=== PATIENT | female | born 1965 | race Caucasian/White ===

== ENCOUNTER 2017-07-29 14:12 | Emergency (ER) | payer OTHER ==
[~2017-07-29] VITALS: Ht 157.4 cm; Wt 52.2 kg
[~2017-07-29 14:12] MED LIST: BENTYL10 MG PO
== END 2017-07-29 16:18 | disposition home or self-care (01) ==
LOC: ED 14:12
DX: S66.812A Strain of other specified muscles, fascia and tendons at wrist and hand level, left hand, initial encounter (principal); F17.200 Nicotine dependence, unspecified, uncomplicated; F10.10 Alcohol abuse, uncomplicated; W22.8XXA Striking against or struck by other objects, initial encounter; Y93.89 Activity, other specified; Y92.89 Other specified places as the place of occurrence of the external cause; Y99.8 Other external cause status

== ENCOUNTER 2017-11-08 17:10 | Emergency (ER) | payer OTHER ==
[~2017-11-08] VITALS: Wt 49.9 kg
[2017-11-08] MEDS ORDERED: CLINDAMYCIN150 MG PO (17:41)
[2017-11-08] MEDS ORDERED: Bactroban Oint22 GM T (17:41)
== END 2017-11-08 17:54 | disposition home or self-care (01) ==
LOC: ED 17:10
DX: Z48.00 Encounter for change or removal of nonsurgical wound dressing (principal); L08.9 Local infection of the skin and subcutaneous tissue, unspecified; R03.0 Elevated blood-pressure reading, without diagnosis of hypertension; F17.200 Nicotine dependence, unspecified, uncomplicated

== ENCOUNTER 2017-12-19 14:39 | Emergency (ER) | payer OTHER ==
[~2017-12-19] VITALS: Ht 157.4 cm; Wt 52.2 kg
[~2017-12-19 14:39] MED LIST changes: +Bactroban Oint22 GM T; +CLINDAMYCIN150 MG PO
[2017-12-19] MEDS ORDERED: FLONASE ALLERG9.9 ML NS (15:33)
[2017-12-19] MEDS ORDERED: AMOXICILLIN500 M2 PO (15:33)
== END 2017-12-19 15:42 | disposition home or self-care (01) ==
LOC: ED 14:39
DX: H65.91 Unspecified nonsuppurative otitis media, right ear (principal); Z79.899 Other long term (current) drug therapy

== ENCOUNTER 2018-05-29 16:35 | Emergency (ER) | payer OTHER ==
[~2018-05-29] VITALS: Ht 157.4 cm; Wt 52.2 kg
[~2018-05-29 16:35] MED LIST changes: +AMOXICILLIN500 M2 PO; +FLONASE ALLERG9.9 ML NS
[2018-05-29] MEDS ORDERED: CEPHALEXIN500 M1 PO (17:28)
== END 2018-05-29 17:40 | disposition home or self-care (01) ==
LOC: ED 16:35
DX: S60.321A Blister (nonthermal) of right thumb, initial encounter (principal); L08.9 Local infection of the skin and subcutaneous tissue, unspecified; Z79.899 Other long term (current) drug therapy; W26.0XXA Contact with knife, initial encounter; Y93.89 Activity, other specified; Y92.89 Other specified places as the place of occurrence of the external cause; Y99.8 Other external cause status

== ENCOUNTER 2019-11-17 19:14 | Emergency (ER) | payer OTHER ==
[~2019-11-17] VITALS: Ht 157.4 cm; Wt 54.4 kg
[~2019-11-17 19:14] MED LIST changes: +CEPHALEXIN500 M1 PO
[2019-11-17 20:06] LABS: BASO # 0.1 10*3/uL (0.0-0.1); BASO % 1.1 % (0.0-1.0); EOS # 0.1 10*3/uL (0.0-0.4); EOS % 0.6 % (1.0-4.0); HEMATOCRIT 31.3 % (37.0-47.0); HEMOGLOBIN 10.1 g/dl (12.0-16.0); LYMPH # 2.1 10*3/uL (1.3-4.4); MEAN CELL VOLUME 80.5 fl (81.0-99.0); MEAN CORPUSCULAR HGB CONC 32.3 g/dl (33.0-37.0); MEAN PLATELET VOLUME 9.3 fl (9.6-12.3); MONO # 0.9 10*3/uL (0.1-1.0); MONO % 11.5 % (3.0-9.0); NEUT # 4.7 10*3/uL (2.3-7.9); NEUT % 59.5 % (47.0-73.0); PLATELET COUNT AUTOMATED 231 10*3/uL (130-400); RED BLOOD COUNT 3.89 10*6/uL (4.10-5.10); RED CELL DISTRI WIDTH 16.7 % (0-14.5); WHITE BLOOD COUNT 7.9 10*3/uL (4.8-10.8)
[2019-11-17 20:19] LABS: ACT PARTIAL THROMBO TIME 29.8 SECONDS (20.0-32.1)
[2019-11-17 20:23] LABS: ALBUMIN 3.4 gm/dl (3.1-4.5); ALKALINE PHOSPHATASE 204 U/L (45-117); BUN 2 mg/dl (7-24); CHLORIDE 93 mmol/L (98-107); CREATININE 0.38 mg/dL (0.55-1.02); LIPASE 203 U/L (73-393); POTASSIUM 3.7 mmol/L (3.5-5.1); SGOT/AST 45 IU/L (3-35); SGPT/ALT 28 U/L (12-78); SODIUM 124 mmol/L (136-145); TOTAL PROTEIN 7.6 gm/dL (6.4-8.2)
[2019-11-17 20:29] LABS: TROPONIN I < 0.015 ng/ml (<0.045)
[2019-11-17 21:48] LABS: CLARITY CLEAR (CLEAR); COLOR YELLOW (YELLOW)
[2019-11-17 21:49] LABS: BILIRUBIN NEGATIVE (NEGATIVE); BLOOD NEGATIVE (NEGATIVE); GLUCOSE NEGATIVE (NEGATIVE); KETONE NEGATIVE (NEGATIVE); LEUKO ESTERASE NEGATIVE (NEGATIVE); NITRITE NEGATIVE (NEGATIVE); SPECIFIC GRAVITY 1.005 (1.005-1.030); UROBILINOGEN 0.2 E.U./dl (0.2-1.0)
[2019-11-17] MEDS ORDERED: PEPCID20 MG PO (22:17)
[2019-11-17] MEDS ORDERED: CARAFATE1 G1 PO (22:17)
== END 2019-11-17 22:30 | disposition home or self-care (01) ==
LOC: ED 19:14
PROVIDERS: Nurse Practitioner Family
DX: R10.13 Epigastric pain (principal)

== ENCOUNTER → 2021-02-12 | Outpatient (CLI) | payer OTHER ==
[~2021-02-12] MED LIST changes: +CARAFATE1 G1 PO; +PEPCID20 MG PO
== END | disposition home or self-care (01) ==
LOC: MAMMO 13:00
PROVIDERS: ATTEND Preventive Medicine Occupational Medicine
DX: Z12.31 Encounter for screening mammogram for malignant neoplasm of breast (principal); N63.10 Unspecified lump in the right breast, unspecified quadrant

== ENCOUNTER → 2021-02-27 | Outpatient (CLI) | payer OTHER | END | disposition home or self-care (01) | LOC: MAMMO 13:00 | PROVIDERS: ATTEND Nurse Practitioner | DX: R92.2 Inconclusive mammogram (principal) ==

== ENCOUNTER 2022-01-14 15:38 | Inpatient (IN) | payer OTHER ==
[2022-01-14] VITALS (10 sets, daily range): BP systolic 87–129; BP diastolic 34–75
[~2022-01-14] VITALS: Ht 157.4 cm; Wt 63.6 kg
[2022-01-14 16:16] LABS: MEAN CELL VOLUME 79.9 fl (81.0-99.0); MEAN CORPUSCULAR HGB 25.3 pg (27.0-31.0); MEAN CORPUSCULAR HGB CONC 31.7 g/dl (33.0-37.0); MEAN PLATELET VOLUME 10.2 fl (9.6-12.3); PLATELET COUNT AUTOMATED 136 10*3/uL (130-400); RED BLOOD COUNT 1.74 10*6/uL (4.10-5.10); RED CELL DISTRI WIDTH 22.8 % (0-14.5); WHITE BLOOD COUNT 8.4 10*3/uL (4.8-10.8)
[2022-01-14 16:40] LABS: MANUAL DIFF REFLEX YES
[2022-01-14 16:42] LABS: ATYPICAL LYMPHS 1 % (0-0); TOTAL CELLS COUNTED 100 #CELLS
[2022-01-14 16:43] LABS: PLATELET SUFFICIENCY NORMAL (NORMAL); POLYCHROMASIA SLIGHT
[2022-01-14 16:44] LABS: MICROCYTOSIS MODERATE
[2022-01-14 16:45] LABS: STOMATOCYTE FEW
[2022-01-14 16:46] LABS: HEMATOCRIT 13.9 % (37.0-47.0)
[2022-01-14 16:55] LABS: ALKALINE PHOSPHATASE 191 U/L (45-117); BUN 22 mg/dl (7-24); CHLORIDE 87 mmol/L (98-107); LIPASE 171 U/L (73-393); POTASSIUM 2.7 mmol/L (3.5-5.1); SGOT/AST 41 IU/L (3-35); SGPT/ALT 16 U/L (12-78); SODIUM 126 mmol/L (136-145); TOTAL PROTEIN 5.4 gm/dL (6.4-8.2)
[2022-01-14 21:41] LABS: BASO % 0.1 % (0.0-1.0); HEMATOCRIT 28.6 % (37.0-47.0); LYMPH # 0.5 10*3/uL (1.3-4.4); LYMPH % 4.4 % (27.0-41.0); MEAN CORPUSCULAR HGB 27.9 pg (27.0-31.0); MEAN CORPUSCULAR HGB CONC 33.6 g/dl (33.0-37.0); MEAN PLATELET VOLUME 9.8 fl (9.6-12.3); MONO # 1.2 10*3/uL (0.1-1.0); NEUT # 9.3 10*3/uL (2.3-7.9); PLATELET COUNT AUTOMATED 117 10*3/uL (130-400); RED BLOOD COUNT 3.44 10*6/uL (4.10-5.10); RED CELL DISTRI WIDTH 17.2 % (0-14.5)
[2022-01-14 21:56] LABS: BUN 20 mg/dl (7-24); CHLORIDE 96 mmol/L (98-107); CREATININE 0.58 mg/dL (0.55-1.02); POTASSIUM 2.9 mmol/L (3.5-5.1); SODIUM 132 mmol/L (136-145)
[2022-01-14 22:21] LABS: MEAN CELL VOLUME 83.1 fl (81.0-99.0)
[2022-01-14] MEDS ORDERED: ZYRTEC ALLERGY10 MG PO (22:27)
[2022-01-15] VITALS: BP 127/70
[2022-01-15 04:00] VITALS: BP 108/58
[2022-01-15 05:06] LABS: ALKALINE PHOSPHATASE 151 U/L (45-117); BUN 20 mg/dl (7-24); CHLORIDE 100 mmol/L (98-107); CHOLESTEROL 70 mg/dL (<200); CREATININE 0.51 mg/dL (0.55-1.02); SGOT/AST 45 IU/L (3-35); SGPT/ALT 16 U/L (12-78); SODIUM 131 mmol/L (136-145); TOTAL PROTEIN 4.6 gm/dL (6.4-8.2); TRIGLYCERIDES 60 mg/dl (<150)
[2022-01-15 05:07] LABS: FREE T4 1.25 ng/dl (0.76-1.46); LDL CHOLESTEROL 32 mg/dL (9-159)
[2022-01-15 05:10] LABS: POTASSIUM 4.3 mmol/L (3.5-5.1)
[2022-01-15 05:13] LABS: THYROID STIM HORMONE (HS) 0.436 uIU/ml (0.358-4.75)
[2022-01-15 06:24] LABS: HEMATOCRIT 25.5 % (37.0-47.0); MEAN CELL VOLUME 80.2 fl (81.0-99.0); MEAN CORPUSCULAR HGB CONC 34.9 g/dl (33.0-37.0); MEAN PLATELET VOLUME 10.4 fl (9.6-12.3); PLATELET COUNT AUTOMATED 115 10*3/uL (130-400); RED BLOOD COUNT 3.18 10*6/uL (4.10-5.10); RED CELL DISTRI WIDTH 17.1 % (0-14.5); WHITE BLOOD COUNT 8.8 10*3/uL (4.8-10.8)
[2022-01-15 06:28] LABS: MANUAL DIFF REFLEX YES
[2022-01-15 06:47] LABS: ACT PARTIAL THROMBO TIME 29.4 SECONDS (20.0-32.1); INTERNATIONAL NORM RATIO 1.3 (2.0-3.5)
[2022-01-15 06:56] LABS: BURR CELLS FEW; PLATELET SUFFICIENCY LOW (NORMAL); POLYCHROMASIA SLIGHT; TARGET CELLS FEW; TOTAL CELLS COUNTED 100 #CELLS
[2022-01-15 06:57] LABS: MICROCYTOSIS SLIGHT
[2022-01-15 08:00] VITALS: BP 114/61
[2022-01-15 12:00] VITALS: BP 102/61
[2022-01-15 16:00] VITALS: BP 101/61
[2022-01-15 20:00] VITALS: BP 130/52
[2022-01-16] VITALS: BP 101/56
[2022-01-16 04:00] VITALS: BP 113/57
[2022-01-16 04:29] LABS: MEAN CELL VOLUME 82.7 fl (81.0-99.0); MEAN CORPUSCULAR HGB 28.1 pg (27.0-31.0); MEAN CORPUSCULAR HGB CONC 33.9 g/dl (33.0-37.0); MEAN PLATELET VOLUME 10.2 fl (9.6-12.3); NUCLEATED RED BLOOD CELL 0.1 % (0.0-0.0); PLATELET COUNT AUTOMATED 138 10*3/uL (130-400); RED BLOOD COUNT 2.78 10*6/uL (4.10-5.10); RED CELL DISTRI WIDTH 17.8 % (0-14.5); WHITE BLOOD COUNT 13.8 10*3/uL (4.8-10.8)
[2022-01-16 04:40] LABS: MANUAL DIFF REFLEX YES
[2022-01-16 04:53] LABS: ALKALINE PHOSPHATASE 155 U/L (45-117); BUN 15 mg/dl (7-24); CHLORIDE 98 mmol/L (98-107); CREATININE 0.55 mg/dL (0.55-1.02); POTASSIUM 3.7 mmol/L (3.5-5.1); SGOT/AST 53 IU/L (3-35); SGPT/ALT 21 U/L (12-78); SODIUM 130 mmol/L (136-145); TOTAL PROTEIN 4.8 gm/dL (6.4-8.2)
[2022-01-16 05:00] LABS: MICROCYTOSIS SLIGHT; PLATELET SUFFICIENCY LOW (NORMAL); TARGET CELLS FEW; TOTAL CELLS COUNTED 100 #CELLS
[2022-01-16 08:00] VITALS: BP 122/76
[2022-01-16 12:00] VITALS: BP 96/61
[2022-01-16 16:00] VITALS: BP 91/52
[2022-01-16 20:00] VITALS: BP 101/63
[2022-01-17] VITALS: BP 112/62; BP 112/73
[2022-01-17 06:36] LABS: HEMATOCRIT 23.3 % (37.0-47.0); MEAN CELL VOLUME 85.7 fl (81.0-99.0); MEAN CORPUSCULAR HGB 28.3 pg (27.0-31.0); MEAN PLATELET VOLUME 10.1 fl (9.6-12.3); PLATELET COUNT AUTOMATED 148 10*3/uL (130-400); RED BLOOD COUNT 2.72 10*6/uL (4.10-5.10); WHITE BLOOD COUNT 12.4 10*3/uL (4.8-10.8)
[2022-01-17 06:39] LABS: MANUAL DIFF REFLEX YES
[2022-01-17 08:00] VITALS: BP 100/50
[2022-01-17 08:05] LABS: TOTAL CELLS COUNTED 100 #CELLS
[2022-01-17 08:06] LABS: PLATELET SUFFICIENCY NORMAL (NORMAL); POLYCHROMASIA SLIGHT; TARGET CELLS FEW; TOXIC GRANULATION SLIGHT
[2022-01-17 16:00] VITALS: BP 112/60
[2022-01-17 20:00] VITALS: BP 100/49
[2022-01-18] VITALS: BP 104/51
[2022-01-18 06:18] LABS: HEMATOCRIT 24.2 % (37.0-47.0); MEAN CELL VOLUME 85.8 fl (81.0-99.0); MEAN CORPUSCULAR HGB 28.4 pg (27.0-31.0); MEAN CORPUSCULAR HGB CONC 33.1 g/dl (33.0-37.0); MEAN PLATELET VOLUME 9.8 fl (9.6-12.3); PLATELET COUNT AUTOMATED 176 10*3/uL (130-400); RED BLOOD COUNT 2.82 10*6/uL (4.10-5.10); RED CELL DISTRI WIDTH 18.3 % (0-14.5); WHITE BLOOD COUNT 7.4 10*3/uL (4.8-10.8)
[2022-01-18 06:56] LABS: MANUAL DIFF REFLEX YES
[2022-01-18 07:07] LABS: POLYCHROMASIA SLIGHT; TOTAL CELLS COUNTED 100 #CELLS
[2022-01-18 07:08] LABS: PLATELET SUFFICIENCY NORMAL (NORMAL)
[2022-01-18 08:00] VITALS: BP 107/55
[2022-01-18] MEDS ORDERED: VANCOMYCIN HCL125 MG PO (10:37)
== END 2022-01-18 11:57 | disposition home or self-care (01) | DRG 871 ==
LOC: ED 15:38 → EDHOLD 19:50 → ICCU 19:50 → 5E 01-16 22:31
PROVIDERS: Internal Medicine; Nurse Practitioner Family; ADMIT Internal Medicine; ATTEND Internal Medicine
PROC: 30233N1 Transfusion of Nonautologous Red Blood Cells into Peripheral Vein, Percutaneous Approach (ICD-10-PCS; principal; 2022-01-14)
DX: A41.9 Sepsis, unspecified organism (principal); E43 Unspecified severe protein-calorie malnutrition; K92.2 Gastrointestinal hemorrhage, unspecified; D62 Acute posthemorrhagic anemia; E87.1 Hypo-osmolality and hyponatremia; E87.2 Acidosis; R65.20 Severe sepsis without septic shock; E83.51 Hypocalcemia; D64.89 Other specified anemias; E87.6 Hypokalemia; E27.8 Other specified disorders of adrenal gland; K52.9 Noninfective gastroenteritis and colitis, unspecified; E87.8 Other disorders of electrolyte and fluid balance, not elsewhere classified; R73.9 Hyperglycemia, unspecified; F17.210 Nicotine dependence, cigarettes, uncomplicated; Z71.6 Tobacco abuse counseling; Z68.25 Body mass index [BMI] 25.0-25.9, adult

== ENCOUNTER 2022-04-26 19:32 | Emergency (ER) | payer OTHER ==
[~2022-04-26] VITALS: Ht 162.5 cm; Wt 63.5 kg
[~2022-04-26 19:32] MED LIST changes: +VANCOMYCIN HCL125 MG PO; +ZYRTEC ALLERGY10 MG PO
[2022-04-26 20:17] LABS: HEMATOCRIT 27.3 % (37.0-47.0); MEAN CELL VOLUME 70.5 fl (81.0-99.0); MEAN CORPUSCULAR HGB 22.5 pg (27.0-31.0); MEAN CORPUSCULAR HGB CONC 31.9 g/dl (33.0-37.0); MEAN PLATELET VOLUME 8.9 fl (9.6-12.3); PLATELET COUNT AUTOMATED 156 10*3/uL (130-400); RED BLOOD COUNT 3.87 10*6/uL (4.10-5.10); RED CELL DISTRI WIDTH 22.3 % (0-14.5); WHITE BLOOD COUNT 6.4 10*3/uL (4.8-10.8)
[2022-04-26 20:24] LABS: MANUAL DIFF REFLEX YES
[2022-04-26 20:31] LABS: BILIRUBIN Negative (Negative); BLOOD Negative (Negative); CLARITY Clear (Clear); COLOR Yellow (Yellow); GLUCOSE Negative (Negative); KETONE Trace (Negative); LEUKO ESTERASE Trace (Negative); NITRITE Negative (Negative); PH 6.5 (4.5-8.0); SPECIFIC GRAVITY <= 1.005 (1.001-1.030)
[2022-04-26 20:39] LABS: ALKALINE PHOSPHATASE 266 U/L (45-117); BUN 5 mg/dl (7-24); CHLORIDE 95 mmol/L (98-107); CREATININE 0.33 mg/dL (0.55-1.02); LIPASE 137 U/L (73-393); POTASSIUM 3.6 mmol/L (3.5-5.1); SGOT/AST 49 IU/L (3-35); SGPT/ALT 22 U/L (12-78); SODIUM 128 mmol/L (136-145); TOTAL PROTEIN 7.2 gm/dL (6.4-8.2)
[2022-04-26 20:53] LABS: BACTERIA 1+; EPITHELIAL CELLS 0-2; WBC 0-2 wbc/hpf (0-5)
[2022-04-26 21:03] LABS: PLATELET SUFFICIENCY NORMAL (NORMAL); TOTAL CELLS COUNTED 100 #CELLS
[2022-04-26 21:04] LABS: STOMATOCYTE FEW; TARGET CELLS FEW
[2022-04-26] MEDS ORDERED: PROTONIX40 MG PO (22:09)
[2022-04-26] MEDS ORDERED: Ondansetron4 MG PO (22:09)
== END 2022-04-26 23:04 | disposition admitted as inpatient to this hospital (09) ==
LOC: ED 19:32
PROVIDERS: Emergency Medicine
DX: R18.8 Other ascites (principal); R10.13 Epigastric pain; R11.2 Nausea with vomiting, unspecified; F17.210 Nicotine dependence, cigarettes, uncomplicated; Z79.2 Long term (current) use of antibiotics; Z79.899 Other long term (current) drug therapy; Z90.710 Acquired absence of both cervix and uterus

== ENCOUNTER 2022-07-26 12:56 | Emergency (ER) | payer OTHER ==
[~2022-07-26] VITALS: Ht 157.4 cm; Wt 59.0 kg
[~2022-07-26 12:56] MED LIST changes: +Ondansetron4 MG PO; +PROTONIX40 MG PO
[2022-07-26] MEDS ORDERED: PHARMASSURE FO0.4 MG PO (14:22)
[2022-07-26 14:39] LABS: BASO # 0.1 10*3/uL (0.0-0.1); BASO % 0.7 % (0.0-1.0); HEMATOCRIT 30.8 % (37.0-47.0); LYMPH % 11.7 % (27.0-41.0); MEAN CELL VOLUME 87.7 fl (81.0-99.0); MEAN CORPUSCULAR HGB 28.8 pg (27.0-31.0); MEAN CORPUSCULAR HGB CONC 32.8 g/dl (33.0-37.0); MEAN PLATELET VOLUME 8.9 fl (9.6-12.3); MONO # 0.8 10*3/uL (0.1-1.0); MONO % 9.5 % (3.0-9.0); NEUT # 6.6 10*3/uL (2.3-7.9); NEUT % 77.7 % (47.0-73.0); PLATELET COUNT AUTOMATED 168 10*3/uL (130-400); RED BLOOD COUNT 3.51 10*6/uL (4.10-5.10); RED CELL DISTRI WIDTH 20.9 % (0-14.5); WHITE BLOOD COUNT 8.4 10*3/uL (4.8-10.8)
[2022-07-26 14:53] LABS: ACT PARTIAL THROMBO TIME 32.3 SECONDS (20.0-32.1); INTERNATIONAL NORM RATIO 1.2 (2.0-3.5)
[2022-07-26 15:01] LABS: ALKALINE PHOSPHATASE 388 U/L (45-117); BUN 2 mg/dl (7-24); CHLORIDE 98 mmol/L (98-107); CREATININE 0.32 mg/dL (0.55-1.02); LIPASE 223 U/L (73-393); POTASSIUM 3.9 mmol/L (3.5-5.1); SGPT/ALT 23 U/L (12-78); SODIUM 130 mmol/L (136-145); TOTAL PROTEIN 6.9 gm/dL (6.4-8.2)
[2022-07-26 15:17] LABS: BILIRUBIN Negative (Negative); BLOOD Negative (Negative); CLARITY Clear (Clear); COLOR Yellow (Yellow); GLUCOSE Negative (Negative); KETONE Negative (Negative); LEUKO ESTERASE Negative (Negative); NITRITE Negative (Negative); PH 6.5 (4.5-8.0); SPECIFIC GRAVITY <= 1.005 (1.001-1.030); UROBILINOGEN 0.2 E.U./dl (0.0-1.0)
[2022-07-26 15:24] LABS: BACTERIA 1+; EPITHELIAL CELLS 0-2; WBC 0-2 wbc/hpf (0-5)
[2022-07-26 15:26] LABS: URINE AMPHETAMINES < 1000 (1000ng/ml); URINE BARBITURATES < 200 (200ng/ml); URINE BENZODIAZEPINES < 200 (200ng/ml); URINE CANNABINOIDS (THC) < 50 (50ng/ml); URINE COCAINE < 300 (300ng/ml); URINE METHADONE < 300 (300ng/ml); URINE OPIATES < 300 (300ng/ml)
[2022-07-26 15:27] LABS: URINE PHENCYCLIDINE < 25 (25ng/ml)
== END 2022-07-26 19:48 | disposition short-term general hospital (02) ==
LOC: ED 12:56
PROVIDERS: Family Medicine
DX: R18.8 Other ascites (principal); Z87.891 Personal history of nicotine dependence; Z90.710 Acquired absence of both cervix and uterus; Z79.899 Other long term (current) drug therapy

== ENCOUNTER 2023-12-12 16:36 | Emergency (ER) | payer OTHER ==
[~2023-12-12] VITALS: Ht 160 cm; Wt 70.8 kg
[~2023-12-12 16:36] MED LIST changes: +PHARMASSURE FO0.4 MG PO
[2023-12-12] MEDS ORDERED: Ondansetron Hydrochloride 4 MG/2 ML VIAL IV ONE (16:50)
[2023-12-12 17:11] LABS: BASO % 0.8 % (0.0-1.0); EOS % 0.2 % (1.0-4.0); HEMATOCRIT 34.5 % (37.0-47.0); LYMPH # 1.1 10*3/uL (1.3-4.4); LYMPH % 21.7 % (27.0-41.0); MEAN CELL VOLUME 93.2 fl (81.0-99.0); MEAN CORPUSCULAR HGB 31.4 pg (27.0-31.0); MEAN CORPUSCULAR HGB CONC 33.6 g/dl (33.0-37.0); MEAN PLATELET VOLUME 10.1 fl (9.6-12.3); MONO # 0.9 10*3/uL (0.1-1.0); MONO % 16.8 % (3.0-9.0); NEUT # 3.1 10*3/uL (2.3-7.9); NEUT % 60.3 % (47.0-73.0); PLATELET COUNT AUTOMATED 50 10*3/uL (130-400); RED CELL DISTRI WIDTH 21.2 % (0-14.5); WHITE BLOOD COUNT 5.1 10*3/uL (4.8-10.8)
[2023-12-12 17:22] LABS: ACT PARTIAL THROMBO TIME 33.6 SECONDS (20.0-32.1)
[2023-12-12 17:34] LABS: ALKALINE PHOSPHATASE 248 U/L (46-116); CHLORIDE 97 mmol/L (98-107); LIPASE 60 U/L (12-53); POTASSIUM 3.8 mmol/L (3.4-5.1); SGPT/ALT 24 U/L (5-49); TOTAL PROTEIN 7.1 gm/dL (6.0-8.0)
[2023-12-12 17:37] LABS: BUN < 5 mg/dl (9-23)
[2023-12-12] MEDS ORDERED: SODIUM CHLORIDE 0.9% 1,000 ML IV ONE (17:50)
[2023-12-12 18:17] LABS: BILIRUBIN Negative (Negative); BLOOD Negative (Negative); CLARITY Clear (Clear); COLOR Yellow (Yellow); GLUCOSE Negative (Negative); KETONE Negative (Negative); LEUKO ESTERASE Negative (Negative); NITRITE Negative (Negative); SPECIFIC GRAVITY <= 1.005 (1.001-1.030)
== END 2023-12-12 19:12 | disposition home or self-care (01) ==
LOC: ED 16:36
PROVIDERS: Nurse Practitioner Family
DX: R10.9 Unspecified abdominal pain (principal); R74.8 Abnormal levels of other serum enzymes; R07.89 Other chest pain; E87.0 Hyperosmolality and hypernatremia; E87.20 Acidosis, unspecified; E87.1 Hypo-osmolality and hyponatremia; F17.200 Nicotine dependence, unspecified, uncomplicated; Z79.899 Other long term (current) drug therapy; Z91.048 Other nonmedicinal substance allergy status; Z90.711 Acquired absence of uterus with remaining cervical stump

== ENCOUNTER 2024-01-29 16:57 | Emergency (ER) | payer OTHER ==
[~2024-01-29] VITALS: Ht 160 cm; Wt 77.1 kg
[2024-01-29] MEDS ORDERED: SODIUM CHLORIDE 0.9% 1,000 ML IV ONE (17:15)
[2024-01-29] MEDS ORDERED: diphenhydrAMINE hydrochloride 50 MG/ML VIAL IV ONE (17:20)
[2024-01-29] MEDS ORDERED: Metoclopramide Hydrochloride 10 MG/2 ML AMP IV ONE (17:20)
[2024-01-29 17:32] LABS: HEMATOCRIT 38.1 % (37.0-47.0); MEAN CELL VOLUME 101.6 fl (81.0-99.0); MEAN CORPUSCULAR HGB 35.5 pg (27.0-31.0); MEAN CORPUSCULAR HGB CONC 34.9 g/dl (33.0-37.0); MEAN PLATELET VOLUME 10.2 fl (9.6-12.3); PLATELET COUNT AUTOMATED 41 10*3/uL (130-400); RED BLOOD COUNT 3.75 10*6/uL (4.10-5.10); RED CELL DISTRI WIDTH 16.5 % (0-14.5); WHITE BLOOD COUNT 4.6 10*3/uL (4.8-10.8)
[2024-01-29 17:48] LABS: ACT PARTIAL THROMBO TIME 32.2 SECONDS (20.0-32.1)
[2024-01-29 17:53] LABS: ALKALINE PHOSPHATASE 282 U/L (46-116); CHLORIDE 96 mmol/L (98-107); LIPASE 52 U/L (12-53); MANUAL DIFF REFLEX YES; POTASSIUM 3.6 mmol/L (3.4-5.1); SGPT/ALT 34 U/L (5-49); TOTAL PROTEIN 6.8 gm/dL (6.0-8.0)
[2024-01-29 17:54] LABS: BUN < 5 mg/dl (9-23)
[2024-01-29] MEDS ORDERED: IOHEXOL 300 MG/ML 100 ML VIAL IV ONE (17:55)
[2024-01-29 18:00] LABS: BURR CELLS MODERATE; PLATELET SUFFICIENCY LOW (NORMAL); TARGET CELLS FEW; TOTAL CELLS COUNTED 100 #CELLS
[2024-01-29 19:25] LABS: BILIRUBIN Negative (Negative); BLOOD Negative (Negative); CLARITY Clear (Clear); COLOR Yellow (Yellow); GLUCOSE Negative (Negative); KETONE Negative (Negative); LEUKO ESTERASE Negative (Negative); NITRITE Negative (Negative); PH 6.5 (4.5-8.0); SPECIFIC GRAVITY 1.015 (1.001-1.030)
[2024-01-29 19:35] LABS: MUCOUS 1+; RBC 0-2 rbc/hpf (0-2); WBC 0-2 wbc/hpf (0-5)
== END 2024-01-29 20:33 | disposition left against medical advice (07) ==
LOC: ED 16:57
PROVIDERS: Nurse Practitioner Family
DX: R18.8 Other ascites (principal); K46.9 Unspecified abdominal hernia without obstruction or gangrene; E87.1 Hypo-osmolality and hyponatremia; R11.2 Nausea with vomiting, unspecified; E43 Unspecified severe protein-calorie malnutrition; F17.210 Nicotine dependence, cigarettes, uncomplicated; Z91.048 Other nonmedicinal substance allergy status; Z79.899 Other long term (current) drug therapy; Z90.711 Acquired absence of uterus with remaining cervical stump

== ENCOUNTER 2024-02-04 12:29 | Emergency (ER) | payer OTHER ==
[~2024-02-04] VITALS: Ht 160 cm; Wt 70.3 kg
[2024-02-04] MEDS ORDERED: Ceftriaxone Sodium 1 GM/10 ML SYR IV ONE (12:40)
[2024-02-04] MEDS ORDERED: Lactated Ringer's Solution 1,000 ML IV SCH (12:40)
[2024-02-04] MEDS ORDERED: Pantoprazole Sodium 40 MG VIAL IV ONE (12:40)
[2024-02-04 13:05] VITALS: BP 40/0
[2024-02-04 13:20] VITALS: BP 119/73
[2024-02-04 13:30] VITALS: BP 122/73
[2024-02-04 13:55] VITALS: BP 75/40
[2024-02-04] MEDS ORDERED: OCTREOTIDE ACETATE 500 MCG in SODIUM CHLORIDE 0.9% 100 ML IV SCH (14:00)
[2024-02-04 14:15] VITALS: BP 75/40
[2024-02-04 14:36] LABS: HEMATOCRIT 30.4 % (37.0-47.0); MEAN CELL VOLUME 104.1 fl (81.0-99.0); MEAN CORPUSCULAR HGB 31.8 pg (27.0-31.0); MEAN CORPUSCULAR HGB CONC 30.6 g/dl (33.0-37.0); MEAN PLATELET VOLUME 10.3 fl (9.6-12.3); NUCLEATED RED BLOOD CELL 0.1 10*3/uL (0.0-0.0); PLATELET COUNT AUTOMATED 30 10*3/uL (130-400); RED BLOOD COUNT 2.92 10*6/uL (4.10-5.10); RED CELL DISTRI WIDTH 18.4 % (0-14.5)
[2024-02-04 14:38] LABS: VENOUS PH 6.767 (7.37-7.45)
[2024-02-04 14:39] LABS: MANUAL DIFF REFLEX YES
[2024-02-04] MEDS ORDERED: IOHEXOL 350 MG/ML 100 ML VIAL IV ONE (14:50)
[2024-02-04] MEDS ORDERED: SODIUM CHLORIDE 0.9% 100 ML BAG IV ONE (14:50)
[2024-02-04 14:53] LABS: ALKALINE PHOSPHATASE 122 U/L (46-116); BUN 9 mg/dl (9-23); CHLORIDE 93 mmol/L (98-107); POTASSIUM 4.7 mmol/L (3.4-5.1); SGPT/ALT 45 U/L (5-49); TOTAL PROTEIN 3.1 gm/dL (6.0-8.0)
[2024-02-04 15:08] LABS: BASOPHILS 1 % (0-1); PLATELET SUFFICIENCY LOW (NORMAL); POLYCHROMASIA SLIGHT; TOTAL CELLS COUNTED 100 #CELLS
[2024-02-04 15:10] LABS: ACT PARTIAL THROMBO TIME > 139.0 SECONDS (20.0-32.1)
[2024-02-04] MEDS ORDERED: NOREPINEPHRINE BITARTRATE/D5W 250 ML IV SCH (15:10)
[2024-02-04] MEDS ORDERED: VASOPRESSIN 100 ML IV SCH (15:40)
== END 2024-02-04 19:16 ==
LOC: ED 12:29
PROVIDERS: Emergency Medicine
DX: K92.0 Hematemesis (principal); K70.31 Alcoholic cirrhosis of liver with ascites; I46.9 Cardiac arrest, cause unspecified; R57.8 Other shock; I67.83 Posterior reversible encephalopathy syndrome; J93.83 Other pneumothorax; R73.9 Hyperglycemia, unspecified; E78.00 Pure hypercholesterolemia, unspecified; E87.6 Hypokalemia; E87.1 Hypo-osmolality and hyponatremia; Z88.8 Allergy status to other drugs, medicaments and biological substances; F17.200 Nicotine dependence, unspecified, uncomplicated; F10.10 Alcohol abuse, uncomplicated; Z90.711 Acquired absence of uterus with remaining cervical stump